=== PATIENT | male | born 2000 | race Two or more races ===

== ENCOUNTER → 2022-03-24 | Emergency (ER) | payer OTHER ==
[~2022-03-24] VITALS: Ht 175.3 cm; Wt 55.8 kg
[~2022-03-24] MED LIST: INTESTINEX680 M1 PO; PEPCID AC20 MG PO
== END | disposition home or self-care (01) ==
LOC: EMR PED 07:55
DX: K52.9 Noninfective gastroenteritis and colitis, unspecified (principal); Z20.822 Contact with and (suspected) exposure to COVID-19